=== PATIENT | female | born 1990 | race Two or more races ===

== ENCOUNTER → 2018-11-24 | Outpatient (CLI) | payer OTHER | END | disposition home or self-care (01) | LOC: RADPV 13:13 | PROVIDERS: ATTEND Obstetrics & Gynecology | DX: Z34.83 Encounter for supervision of other normal pregnancy, third trimester (principal); Z3A.36 36 weeks gestation of pregnancy | CPT/HCPCS: 76811 ==

== ENCOUNTER 2018-12-11 09:20 | Inpatient (IN) | payer OTHER ==
[~2018-12-11] VITALS: Ht 170.2 cm; Wt 82.1 kg
[2018-12-11] MEDS ORDERED: OXYTOCIN 30 UNITS/LACT RINGERS 500 ML IV ONE (10:05)
[2018-12-11] MEDS ORDERED: RINGERS SOLUTION,LACTATED 1,000 ML IV PRN (10:05)
[2018-12-11] MEDS ORDERED: AMPICILLIN SODIUM 1 GM/NS 50 ML IV SCH (10:15)
[2018-12-11] MEDS ORDERED: METOCLOPRAMIDE HCL 5 MG/ML 2 ML VIAL IVP PRN (10:15)
[2018-12-11] MEDS ORDERED: AMPICILLIN SODIUM 2 GM/NS 100 ML IV ONE ×2 (10:15)
[2018-12-11] MEDS ORDERED: CITRIC ACID/SODIUM CITRATE 30 ML SOLUTION UDCUP PO PRN (10:15)
[2018-12-11 10:22] VITALS: BP 127/78
[2018-12-11 10:54] LABS: BASOPHILS % (AUTO) 0.2 % (0.0-2.0); EOSINOPHILS % (AUTO) 0.2 % (1.0-6.0); HEMATOCRIT 36.6 % (36-46); HEMOGLOBIN 12.2 g/dL (12.0-16.0); LYMPHOCYTES # (AUTO) 1.1 K/uL (1.0-4.8); LYMPHOCYTES % (AUTO) 8.9 % (22.0-44.0); MEAN CORPUSCULAR HEMOGLOBIN 29.8 pg (26.0-34.0); MEAN CORPUSCULAR HGB CONC 33.3 G/dL (31.0-37.0); MEAN CORPUSCULAR VOLUME 90 fL (80-100); MONOCYTES # (AUTO) 0.8 K/uL (0.1-1.0); MONOCYTES % (AUTO) 6.5 % (2.0-9.0); NEUTROPHILS # (AUTO) 10.4 K/uL (1.8-7.7); NEUTROPHILS % (AUTO) 84.2 % (40.0-70.0); PLATELET COUNT (AUTO)-OB 202 K/uL (150-450); RED BLOOD CELL COUNT(AUTO) 4.08 MIL/uL (4.00-5.20); RED CELL DISTRIBUTION WIDTH 13.6 % (11.5-14.5)
[2018-12-11] MEDS ORDERED: LIDOCAINE/PF 2% 5 ML VIAL ONE (11:05)
[2018-12-11] MEDS ORDERED: ROPIVACAINE HCL/PF 0.2% 100 ML ED ONE (11:05)
[2018-12-11] MEDS: RINGERS SOLUTION,LACTATED 1,000 ML IV SCH ×2 (11:19→19:01)
[2018-12-11] MEDS ORDERED: DiphenhydrAMINE HCL 50 MG/ML VIAL IVP PRN (11:30)
[2018-12-11] MEDS ORDERED: ONDANSETRON HCL 4 MG/2 ML VIAL IVP PRN (11:30)
[2018-12-11] MEDS ORDERED: ROPIVACAINE HCL/PF 0.2% 100 ML ED PRN (11:30)
[2018-12-11] MEDS ORDERED: NALBUPHINE HCL 10 MG/ML VIAL IVP PRN (11:30)
[2018-12-11] MEDS: AMPICILLIN SODIUM 1 GM/NS 50 ML IV SCH ×2 (14:49→18:59)
[2018-12-11] MEDS ORDERED: OXYGEN THERAPY IH SCH (20:00)
[2018-12-11] MEDS ORDERED: RINGERS SOLUTION,LACTATED 1,000 ML IV ONE (22:53)
[2018-12-11] MEDS ORDERED: MEASLES/MUMPS/RUBELLA VACCINE, LIVE 0.5 ML/VIAL SQ ONE (23:00)
[2018-12-11] MEDS ORDERED: OxyCODONE HCL/ACETAMINOPHEN 5-325 MG TABLET PO PRN ×2 (23:00)
[2018-12-11] MEDS ORDERED: LANOLIN 7 GM OINTMENT TP PRN (23:00)
[2018-12-12] MEDS: BENZOCAINE 20%/MENTHOL 56 GM SPRAY CANISTER TP PRN (00:02)
[2018-12-12] MEDS: GLYCERIN/WITCH HAZEL LEAF 40 PADS JAR TP PRN (00:02)
[2018-12-12] MEDS: IBUPROFEN 600 MG TABLET PO PRN ×3 (00:03→22:19)
[2018-12-12] MEDS: MAGNESIUM HYDROXIDE SUSPENSION 30 ML UDCUP PO SCH ×2 (08:57→22:19)
[2018-12-13] MEDS: IBUPROFEN 600 MG TABLET PO PRN ×2 (09:04→17:46)
[2018-12-13] MEDS: MAGNESIUM HYDROXIDE SUSPENSION 30 ML UDCUP PO SCH (09:04)
[2018-12-13] MEDS ORDERED: IBUP-2071 PO (11:18)
[2018-12-13] MEDS: BENZOCAINE 20%/MENTHOL 56 GM SPRAY CANISTER TP PRN (17:46)
[2018-12-13] MEDS: GLYCERIN/WITCH HAZEL LEAF 40 PADS JAR TP PRN (17:46)
== END 2018-12-13 17:50 | disposition home or self-care (01) | DRG 560 ==
LOC: 4S 09:20 → OBSVTOIN 09:20
PROVIDERS: ADMIT Obstetrics & Gynecology; ATTEND Obstetrics & Gynecology
PROC: 10E0XZZ Delivery of Products of Conception, External Approach (ICD-10-PCS; principal; 2018-12-11)
PROC: 0KQM0ZZ Repair Perineum Muscle, Open Approach (ICD-10-PCS; 2018-12-11)
PROC: 3E0R3BZ Introduction of Anesthetic Agent into Spinal Canal, Percutaneous Approach (ICD-10-PCS; 2018-12-11)
PROC: 00HU33Z Insertion of Infusion Device into Spinal Canal, Percutaneous Approach (ICD-10-PCS; 2018-12-11)
DX: O99.824 Streptococcus B carrier state complicating childbirth (principal); Z37.0 Single live birth; O70.1 Second degree perineal laceration during delivery; Z3A.39 39 weeks gestation of pregnancy
CPT/HCPCS: 86850; 86870; 86900; 86901; J0290; J2590; J2795; J3490; J7120